=== PATIENT | male | born 1995 | race Two or more races ===

== ENCOUNTER 2016-11-05 20:12 | Emergency (ER) | payer SELFPAY ==
[~2016-11-05] VITALS: Ht 175.3 cm; Wt 65.8 kg
[2016-11-05 20:12] VITALS: BP 137/89
== END 2016-11-05 20:57 | disposition home or self-care (01) ==
LOC: ER 20:18
DX: F15.10 Other stimulant abuse, uncomplicated (principal)
CPT/HCPCS: A4606; Z7610